=== PATIENT | female | born 1965 | race African-American/Black ===

== ENCOUNTER 2022-02-26 05:30 | Emergency (ER) | payer SELFPAY ==
[~2022-02-26] VITALS: Ht 149.9 cm; Wt 67.1 kg
[2022-02-26 05:34] VITALS: BP 125/71
--- NOTE | 2022-02-26 05:41 | NUR ---
PT AMBULATORY TO BED 09
--- NOTE | 2022-02-26 06:00 | NUR ---
X-ray at bedside.
--- NOTE | 2022-02-26 06:05 | NUR ---
Dr. Aguilar at bedside to exam patient.
[2022-02-26] MEDS ORDERED: CODE5SYR5 PO (06:23)
[2022-02-26 06:30] VITALS: BP 101/55
--- NOTE | 2022-02-26 06:37 | NUR ---
Patient discharged with v/s stable. Written and verbal after care instructions given and explained. Patient alert, oriented and verbalized understanding of instructions. Ambulatory with steady gait. All questions addressed prior to discharge. ID band removed. Patient advised to follow up with PMD. Rx of PROMETHAZINE HCL/CODEINE given. Patient educated on indication of medication including possible reaction and side effects. Opportunity to ask questions provided and answered.
== END 2022-02-26 06:30 | disposition home or self-care (01) ==
LOC: MED 05:30
DX: R05.9 Cough, unspecified (principal); R11.0 Nausea; Z79.899 Other long term (current) drug therapy; Z88.0 Allergy status to penicillin; Z88.8 Allergy status to other drugs, medicaments and biological substances
CPT/HCPCS: 71045; 99283; Q0092